=== PATIENT | male | born 1980 | race Caucasian/White ===

== ENCOUNTER 2018-09-24 21:16 | Emergency (ER) | payer MEDICAID, OTHER ==
[~2018-09-24] VITALS: Ht 170.2 cm; Wt 82.7 kg
[2018-09-25] MEDS ORDERED: AMOX500C2 PO (00:40)
[2018-09-25] MEDS ORDERED: CARB15DR91 EACH EAR (00:40)
[2018-09-25] MEDS ORDERED: traMADol 50MG tablet PO ONE (00:45)
[2018-09-25] MEDS ORDERED: HYDR-4353 PO (01:00)
[2018-09-25] MEDS ORDERED: amoxicillin 250mg capsule PO ONE (01:00)
[2018-09-25 01:09] VITALS: BP 145/95
== END 2018-09-25 01:26 | disposition home or self-care (01) ==
LOC: ER 21:17
DX: H61.23 Impacted cerumen, bilateral (principal); Z88.5 Allergy status to narcotic agent; Z88.8 Allergy status to other drugs, medicaments and biological substances; Z79.899 Other long term (current) drug therapy
CPT/HCPCS: 69209; 99283